=== PATIENT | female | born 1995 | race Caucasian/White ===

== ENCOUNTER 2022-12-22 14:06 | Outpatient (CLI) | payer BC | END 2022-12-22 18:26 | disposition home or self-care (01) | LOC: SCT 14:06 | DX: J32.3 Chronic sphenoidal sinusitis (principal); J30.9 Allergic rhinitis, unspecified; J35.1 Hypertrophy of tonsils; J34.89 Other specified disorders of nose and nasal sinuses | CPT/HCPCS: 70486-TC; 76376 ==